=== PATIENT | female | born 1945 | race Caucasian/White ===

== ENCOUNTER → 2018-10-10 | Outpatient (CLI) | payer OTHER ==
[~2018-10-10] VITALS: Ht 167.6 cm; Wt 63.5 kg
[~2018-10-10] MED LIST: CALCIUM 500 +1 EAC5 PO; CENTRUM SILVER1 EAC4 PO; COUMADIN 4 MG TA4 M1 PO; HYDROXYCHLOROQ200 M1 PO; LISINOPRIL20 MG PO
[2018-10-10 08:32] LABS: PROTIME 10.9 Seconds (9.3-11.4)
--- NOTE | 2018-10-13 11:03 | P ---
[facility] [place] [address] PROCEDURE REPORT Name: EKATERINABarrieISMAEL Room #: REG [facility]#: [id number] Admission: 10/10/18 Attend Phys: Alverto Chapman MD Discharge: Date of : 45 Report #: [id number] THIS REPORT FOR: //name// CC: INES Chapman BRIEF HISTORY: The patient is a 73-year-old woman for screening colonoscopy. PREOPERATIVE DIAGNOSIS: Screening colonoscopy. POSTOPERATIVE DIAGNOSIS: Diminutive polyp, hepatic flexure. MEDICATIONS: Deep sedation with propofol per anesthesia. SPECIMEN: Polyp, hepatic flexure. ESTIMATED BLOOD LOSS: 3 mL. PROCEDURE: Colonoscopy to cecum and terminal ileum with biopsy. FINDINGS: Prior to propofol sedation, procedure of colonoscopy was discussed with the patient as well as potential risks and its complications. She indicates she understands and desires to proceed. DESCRIPTION OF PROCEDURE: With the patient in left lateral decubitus position, digital examination was completed, which revealed no abnormalities. Subsequently, the Olympus video colonoscope was introduced in the rectum, advanced under direct vision to the cecum. Done with minimal difficulty. The cecum was identified by the ileocecal valve and the appendiceal orifice. I was able to visualize the distal segment of terminal ileum, which was inspected and noted to be unremarkable. At that point, the scope was slowly withdrawn and careful circumferential views obtained including retroflexing the scope in the ascending colon. Upon slow withdrawal of the scope, the prep was somewhat limited in the proximal colon with scattered bilious material. We were able to clean up much of this material and overall a reasonably good prep was obtained. As we withdrew the scope, a diminutive polyp was seen at the level of the hepatic flexure. The scope was further withdrawn and no additional neoplastic lesions were seen. There were also few scattered diverticula at the level of the hepatic flexure. As we withdrew the scope, the mucosa was normal throughout the remainder of the colon. In the left colon, in particular the sigmoid colon, she was noted to have moderately severe diverticular disease without endoscopic evidence of diverticulitis. The scope was withdrawn in the rectum, no abnormalities were seen. However, upon retroflexion, small hemorrhoids were seen. Scope was withdrawn. The patient tolerated the procedure well. CONDITION OF THE PATIENT UPON DISCHARGE: Following procedure, the patient [address] [address] PROCEDURE REPORT Name: ISMAEL LAZARO Room #: REG [facility].#: [id number] Admission: 10/10/18 Attend Phys: Alverto Chapman MD Discharge: Date of : 45 Report #: [id number] drowsy. She will be discharged home when fully ambulatory. INSTRUCTIONS TO THE PATIENT AND FAMILY AT THE TIME OF DISCHARGE: One diminutive polyp identified and removed as described above. We will follow up on the pathology and make further recommendations. If this is an adenomatous, return in 5 years for high risk screening colonoscopy; if not, then 10 years would be indicated. She has had some vague intermittent abdominal discomfort for several years. There were no lesions in the colon or distal terminal ileum to explain her pain. I would like to avoid use of anticholinergic medicines in this patient. Suggest high fiber diet and fiber supplementation. We will review further with the patient. If she continues to have pain, she will return to see me in followup in the office. Her last colonoscopy was nearly 7 years ago. Withdrawal time from the cecum was 10 minutes 10 seconds. <ELECTRONICALLY SIGNED> By: Alverto Chapman MD 10/13/18 [id number] Alverto Chapman MD /nt
--- NOTE | 2018-10-14 13:08 | PATH ---
[facility] [address] [place] [address] PATHOLOGY RPT PROCEDURE Name: ISMAEL WORTHINGTON Room #: REG [facility].#: [id number] Admission: 10/10/18 Date of : 45 Discharge: Report #: [id number] Path Case #: [id number] [facility] Accession Number: [id number] . 01 Material submitted: . HEPATIC FLEXURE POLYP . 01 Clinical history: . Pre-OP DX: Abdominal pain Post-OP DX: Polyp, diverticuli . 02 Diagnosis: Polyp, hepatic flexure polyp, endoscopic biopsy: - Tubular adenoma. - Negative for high grade dysplasia. . (IUV:mml; 10/13/2018) QLM/10/13/2018 . 02 Electronically signed: . Cynthia Arevalo MD, Pathologist NPI- [id number] . 01 Gross description: . Received in formalin labeled "Ismael Worthington, hepatic flexure polyp," is a single segment of atkins soft tissue measuring 0.3 cm in maximum dimension. The specimen is entirely submitted in cassette A1. (TSD; 10/10/2018) TOB/TOB . 02 Pathologist provided ICD-10: D12.3 . 02 CPT . 320258 Specimen Comment: A courtesy copy of this report has been sent to Specimen Comment: [phone], . Specimen Comment: Report sent to and Specimen Comment: A duplicate report has been generated due to demographic updates. Performed at: [address], [place], [place] [id number] MD Marin Graham MD Phone: [phone] Performed at: [address] [id number] [address] [address] PATHOLOGY RPT PROCEDURE Name: ISMAEL WORTHINGTON Room #: REG [facility].#: [id number] Admission: 10/10/18 Date of : 45 Discharge: Report #: [id number] Path Case #: [id number] MD Cynthia Arevalo MD Phone: [phone]
== END | disposition home or self-care (01) ==
LOC: GI 07:26
PROVIDERS: Specialist
DX: Z12.11 Encounter for screening for malignant neoplasm of colon (principal); D12.3 Benign neoplasm of transverse colon; I10 Essential (primary) hypertension; Z98.890 Other specified postprocedural states; Z86.718 Personal history of other venous thrombosis and embolism; Z79.01 Long term (current) use of anticoagulants; Z79.899 Other long term (current) drug therapy; Z98.818 Other dental procedure status; Z90.89 Acquired absence of other organs
CPT/HCPCS: 62110; 62900